=== PATIENT | female | born 1985 | race Caucasian/White ===

== ENCOUNTER 2018-01-13 05:39 | Day surgery (SDC) | payer BC ==
[2018-01-13] MEDS ORDERED: MIDAZOLAM 1 MG/ML 2 ML INJ (07:44)
[2018-01-13] MEDS ORDERED: LACTATED RINGER'S 1,000 ML IV ×2 (08:23→08:30)
[2018-01-13] MEDS ORDERED: PROPOFOL 20 ML (08:23)
[2018-01-13] MEDS ORDERED: LIDOCAINE 2% (SDV) 5 ML INJ (08:23)
[2018-01-13] MEDS ORDERED: ONDANSETRON 4 MG INJ (08:23)
[2018-01-13] MEDS ORDERED: CEFAZOLIN 1 GM INJ (08:29)
[2018-01-13] MEDS ORDERED: morphine 2 MG INJ IV (08:30)
[2018-01-13] MEDS ORDERED: ONDANSETRON 4 MG INJ IV ×2 (08:30→09:00)
[2018-01-13] MEDS ORDERED: OXYCODONE/ACETAMINOPHEN (5/325) TAB PO (08:30)
[2018-01-13] MEDS ORDERED: IBUPROFEN 600 MG TAB PO (08:30)
[2018-01-13] MEDS ORDERED: ACETAMINOPHEN 325 MG TAB PO (08:30)
[2018-01-13] MEDS ORDERED: MEPERIDINE 25 MG INJ IV (09:00)
[2018-01-13] MEDS ORDERED: DIPHENHYDRAMINE 50 MG INJ IV (09:00)
[2018-01-13] MEDS ORDERED: FENTAnyl 50 MCG/ML VIAL IV (09:00)
[2018-01-13] MEDS ORDERED: HYDROmorphONE (0.2 MG/ML) 10ML SYG IV ×2 (09:00)
== END 2018-01-13 10:15 | disposition home or self-care (01) ==
LOC: SDS 05:39
DX: T83.32XA Displacement of intrauterine contraceptive device, initial encounter (principal); Y82.8 Other medical devices associated with adverse incidents; E66.01 Morbid (severe) obesity due to excess calories; Z68.42 Body mass index [BMI] 45.0-49.9, adult; J45.909 Unspecified asthma, uncomplicated
CPT/HCPCS: 58579; 86850; 86900; 86901